=== PATIENT | female | born 1990 | race Caucasian/White ===

== ENCOUNTER 2017-02-27 20:29 | Emergency (ER) | payer MEDICAID ==
[2017-02-27 21:02] VITALS: BP 148/89
--- NOTE | 2017-02-27 21:27 | EDM.PDOC ---
ED HPI GENERAL MEDICAL PROBLEM - General Chief Complaint: Abdominal Pain Stated Complaint: RI SI PAIN Time Seen by Provider: 02/27/17 21:15 Source of Information: Reports: Patient History Limitations: Reports: No Limitations - History of Present Illness INITIAL COMMENTS - FREE TEXT/NARRATIVE: Melida is a 26 year old female who presents to the ED today with c/o RUQ pain and sob for the last 3 days. Patient reports she had her gallbladder out roughly one year ago. She endorses nausea last night which has since resolved. She denies any vomiting, diarrhea or blood in her stool. Patient denies any fever/chills. Patient does report that she eats ice all day long, she has done this since having her gallbladder out, 2 large cups every hour. She "likes the crunch of the ice". Patient's last period was 2 weeks ago. She is not on control, she does smoke 3/4 pack per day. Patient denies any blood clot/PE/DVT hx. Right Upper Abdomen Pain Score (Numeric/FACES): 6 - Related Data Allergies Allergy/AdvReac Type Severity Reaction Status Date / Time No Known Allergies Allergy Verified 02/27/17 21:05 Home Meds: Home Meds Dextroamphetamine/Amphetamine [Adderall 10 mg Tablet] 10 mg PO DAILY 03/09/16 [ History] Amphetamine/Dextroamphetamine [Adderall XR] 20 mg PO DAILY 03/10/16 [History] Venlafaxine HCl [Venlafaxine ER] 75 mg PO DAILY 03/10/16 [History] Past Medical History HEENT History: Reports: Impaired Vision Genitourinary History: Reports: UTI, Recurrent [employer] History: Reports: Psychiatric History: Reports: ADHD, Bipolar, Depression - Infectious Disease History Infectious Disease History: Reports: Chicken Pox - Past Surgical History GI Surgical History: Reports: Cholecystectomy Female Surgical History: Reports: Section Social & Family History - Family History Family Medical History: Noncontributory - Tobacco Use Smoking Status *Q: Current Every Day Smoker Years of Tobacco use: 13 Packs/Tins Daily: 0.2 Used Tobacco, but Quit: No Second Hand Smoke Exposure: Yes - Caffeine Use Caffeine Use: Reports: Coffee, Energy Drinks, Soda, Tea - Recreational Drug Use Recreational Drug Use: No ED ROS GENERAL - Review of Systems Review Of Systems: ROS reveals no pertinent complaints other than HPI. ED EXAM, GI/ABD - Physical Exam Exam: See Below Exam Limited By: No Limitations General Appearance: Alert, WD/WN, No Apparent Distress Throat/Mouth: Normal Inspection, Normal Oropharynx Head: Atraumatic Respiratory/Chest: No Respiratory Distress, Lungs Clear, Normal Breath Sounds, No Accessory Muscle Use Cardiovascular: Normal Peripheral Pulses, Regular Rate, Rhythm, No Murmur GI/Abdominal: Normal Bowel Sounds, Soft, No Organomegaly, Other (patient reports her RUQ feels better with pushing/pressure) (Female) Exam: Deferred Rectal (Female) Exam: Deferred Back Exam: Normal Inspection Extremities: Normal Inspection Neurological: Alert, Oriented, CN II-XII Intact Psychiatric: Normal Affect, Normal Mood Skin Exam: Warm, Dry, Intact Course - Vital Signs Text/Narrative:: Melida is a 26 year old female who presents to the ED today with c/o RUQ pain and sob for the last 3 days. Please refer to HPI and focused exam. Patient on exam is well hydrated, she is non-toxic appearing. Patient's exam is rather unremarkable. Likely pain inflammatory in nature. PE is on the differential given smoking hx and SOB although WELLS is 0 so unlikely. Common bile duct stone a possibility, however, patient is not colicky on exam and exhibits very mild tenderness. CBC evaluated, white count is normal. HGB is low at 9.7, other findings consistent with likely iron deficiency anemia, no RDW available. CMP returns within normal limits. D dimer is negative. CXR obtained and is unremarkable. I discussed my findings and test results with patient. I would like her seen in clinic in the next week with her PCP, Juve to discuss her anemia. I have ordered iron studies today. She may be eating excessive amounts of ice from her anemia, certainly a psychological component may be playing a role. I do think patient's RUQ pain and sob symptoms have an inflammatory component, I have encouraged her to take scheduled ibuprofen for the next 5 days. I will start patient in oral iron supplementation. Reasons to return to the ED were discussed in detail. Patient is agreeable to plan of care and questions were answered prior to discharge. Patient discharged in stable condition. Last Recorded V/S: Last Vital Signs Temp 36.9 C 02/27/17 21:10 Pulse 97 02/27/17 21:10 Resp 18 02/27/17 21:10 BP 148/89 H 02/27/17 21:10 Pulse Ox 100 02/27/17 21:10 - Orders/Labs/Meds Orders: Active Orders 24 hr Category Date Time Status Chest 2V [CR] Stat Exams 02/27/17 22:16 Ordered IRON,FE [CHEM] Stat Lab 02/27/17 22:27 Ordered IRON/TIBC [CHEM] Stat Lab 02/27/17 22:28 Ordered Labs: Laboratory Tests 02/27/17 02/27/17 02/27/17 Range/Units 21:32 21:32 21:32 WBC 10.7 (4.5-11.0) K/uL RBC 4.90 (3.30-5.50) M/uL Hgb 9.7 L (12.0-15.0) g/dL Hct 32.9 L (36.0-48.0) % MCV 67 L (80-98) fL MCH 20 L (27-31) pg MCHC 30 L (32-36) % Plt Count 297 (150-400) K/uL Neut % (Auto) 55 (36-66) % Lymph % (Auto) 35 (24-44) % Fountain % (Auto) 7 H (2-6) % Eos % (Auto) 1 L (2-4) % Baso % (Auto) 1 (0-1) % D-Dimer, Quantitative < 100 (0.0-400.0) ng/mL Sodium 139 L (140-148) mmol/L Potassium 4.0 (3.6-5.2) mmol/L Chloride 104 (100-108) mmol/L Carbon Dioxide 29 (21-32) mmol/L Anion Gap 10.0 (5.0-14.0) mmol/L BUN 10 (7-18) mg/dL Creatinine 0.9 (0.6-1.0) mg/dL Est Cr Clr Drug Dosing 87.12 mL/min Estimated GFR (MDRD) > 60 (>60) Glucose 89 (74-106) mg/dL Calcium 9.0 (8.5-10.1) mg/dL Total Bilirubin 0.3 (0.2-1.0) mg/dL AST 14 L (15-37) U/L ALT 21 (12-78) U/L Alkaline Phosphatase 69 (46-116) U/L Total Protein 6.7 (6.4-8.2) g/dL Albumin 3.3 L (3.4-5.0) g/dL Globulin 3.4 (2.3-3.5) g/dL Albumin/Globulin Ratio 1.0 L (1.2-2.2) Departure - Departure Time of Disposition: 23:00 Disposition: Home, Self-Care 01 Condition: Good Clinical Impression: Pagophagia, RUQ pain Iron deficiency anemia Qualifiers: Iron deficiency anemia type: unspecified iron deficiency Qualified Code(s): D50.9 - Iron deficiency anemia, unspecified - Discharge Information Instructions: Abdominal Pain, Adult, [id number], Iron Deficiency Anemia, Adult Forms: ED Department Discharge Additional Instructions: Melida, Please see Dr. An by Tuesday this week. Take ibuprofen 600 mg every 6 hours scheduled for the next 5 days. Take iron supplement as prescribed. - My Orders Last 24 Hours: My Active Orders 02/27/17 22:16 Chest 2V [CR] Stat 02/27/17 22:27 IRON,FE [CHEM] Stat 02/27/17 22:28 IRON/TIBC [CHEM] Stat - Assessment/Plan Last 24 Hours: My Active Orders 02/27/17 22:16 Chest 2V [CR] Stat 02/27/17 22:27 IRON,FE [CHEM] Stat 02/27/17 22:28 IRON/TIBC [CHEM] Stat
--- NOTE | 2017-02-28 09:15 | CR ---
Chest 2V HISTORY: Shortness of breath. COMPARISON: None FINDINGS: Cardiac size and pulmonary vessels normal. There are no infiltrates or effusions. No pneum othorax. The osseous structures appear normal. IMPRESSION: No acute pulmonary disease.
== END 2017-02-27 22:45 | disposition home or self-care (01) ==
LOC: JP.ED 20:29
DX: R10.11 Right upper quadrant pain (principal); D50.9 Iron deficiency anemia, unspecified; H54.7 Unspecified visual loss; F31.9 Bipolar disorder, unspecified; F17.210 Nicotine dependence, cigarettes, uncomplicated; Z90.49 Acquired absence of other specified parts of digestive tract; Z87.440 Personal history of urinary (tract) infections
CPT/HCPCS: 36415; 71020; 71020-26; 80053; 83550; 85025; 85379; 99284

== ENCOUNTER 2019-06-29 14:01 | Emergency (ER) | payer SELFPAY ==
[2019-06-29 14:51] VITALS: BP 130/80; PULSE 90
--- NOTE | 2019-06-29 15:04 | EDM.PDOC ---
ED HPI GENERAL MEDICAL PROBLEM - General Chief Complaint: General Stated Complaint: LEFT SIDE PAIN Time Seen by Provider: 06/29/19 14:56 Source of Information: Reports: Patient, Family History Limitations: Reports: No Limitations - History of Present Illness INITIAL COMMENTS - FREE TEXT/NARRATIVE: 28-year-old female arrives with the left-sided pain that's been worsening over the past 7 days. 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 It seems to be slowly worsening, it is not painful to breathe but it's hard to lay on her left side. No fevers or chills, no cough, no shortness of breath. Denies abdominal pain. It seems to be a little better in the morning, and worsens during the day. She is taking 800 mg of ibuprofen each evening. Onset: Gradual Duration: Day(s): (7 days) Location: Reports: Chest (Left side) Quality: Reports: Sharp, Stabbing Associated Symptoms: Reports: No Other Symptoms Left Chest Pain Score (Numeric/FACES): 6 - Related Data Allergies Allergy/AdvReac Type Severity Reaction Status Date / Time No Known Allergies Allergy Verified 06/29/19 14:50 Home Meds: Home Meds Venlafaxine HCl [Venlafaxine ER] 75 mg PO DAILY 03/10/16 [History] Past Medical History HEENT History: Reports: Impaired Vision Genitourinary History: Reports: UTI, Recurrent C[employer] History: Reports: Psychiatric History: Reports: ADHD, Bipolar, Depression - Infectious Disease History Infectious Disease History: Reports: Chicken Pox - Past Surgical History GI Surgical History: Reports: Cholecystectomy Female Surgical History: Reports: Section Social & Family History - Family History Family Medical History: Noncontributory - Tobacco Use Smoking Status *Q: Current Every Day Smoker Years of Tobacco use: 12 Packs/Tins Daily: 0.5 - Caffeine Use Caffeine Use: Reports: Coffee, Soda - Recreational Drug Use Recreational Drug Use: No ED ROS GENERAL - Review of Systems Review Of Systems: See Below Constitutional: Denies: Fever, Chills HEENT: Reports: No Symptoms Respiratory: Denies: Shortness of Breath, Pleuritic Chest Pain Cardiovascular: Reports: Chest Pain GI/Abdominal: Denies: Abdominal Pain, Nausea, Vomiting : Reports: No Symptoms Skin: Denies: Bruising Neurological: Reports: No Symptoms Psychiatric: Reports: No Symptoms ED EXAM, GENERAL - Physical Exam Exam: See Below Exam Limited By: No Limitations General Appearance: Alert, No Apparent Distress Head: Atraumatic Neck: Supple Respiratory/Chest: No Respiratory Distress, Lungs Clear, Other (She is very tender to palpation along the inferior margin of the left anterior and lateral ribs, especially at the margin of the oblique muscles. There is no tenderness to palpation of the abdomen. She can bounce up and down, heel strike without pain.) Cardiovascular: Regular Rate, Rhythm Course - Vital Signs Last Recorded V/S: Last Vital Signs Temp 98.1 F 06/29/19 14:47 Pulse 90 06/29/19 14:47 Resp 16 06/29/19 14:47 BP 130/80 06/29/19 14:47 Pulse Ox 100 06/29/19 14:47 - Re-Assessments/Exams Free Text/Narrative Re-Assessment/Exam: 06/29/19 15:17 This patient has irritation of the insertion of the oblique and serratus muscles on the lateral and anterior left chest wall. She was provided with 2 six -inch Vinnie wraps to wrap for comfort during activity, she can also place into her wrap ice afterwards. She cannot wear them while sleeping. She is going to increase ibuprofen to 800 mg 3 times a day, and I also gave her 15 Flexeril to use at bedtime. She can continue working as long as it doesn't get significantly worse, and she'll recheck if she develops cough, fever, nausea vomiting, abdominal pain or other concerns. Departure - Departure Time of Disposition: 15:55 Disposition: Home, Self-Care 01 Clinical Impression: Strain of chest wall Qualifiers: Encounter type: initial encounter Qualified Code(s): S29.011A - Strain of muscle and tendon of front wall of thorax, initial encounter - Discharge Information Instructions: Muscle Strain, [id number] Referrals: PCP,None [Primary Care Provider] - Forms: ED Department Discharge Care Plan Goals: Increase ibuprofen to 800 mg 3 times a day, ice the area after activity and use wraps for support if beneficial. Use muscle relaxers at night to help with sleep. Return anytime if worsening symptoms such as fever, shortness of breath, cough or abdominal pain.
== END 2019-06-29 15:56 | disposition home or self-care (01) ==
LOC: JP.ED 14:01
DX: S29.011A Strain of muscle and tendon of front wall of thorax, initial encounter (principal); F17.210 Nicotine dependence, cigarettes, uncomplicated; F32.9 Major depressive disorder, single episode, unspecified; Z79.899 Other long term (current) drug therapy; X50.0XXA Overexertion from strenuous movement or load, initial encounter; X50.3XXA Overexertion from repetitive movements, initial encounter; Y93.89 Activity, other specified
CPT/HCPCS: 99283; 99284